=== PATIENT | female | born 1935 | race Caucasian/White ===

== ENCOUNTER 2016-11-29 09:21 | Outpatient (CLI) | payer MEDICARE, OTHER ==
[2016-11-29] MEDS ORDERED: ALBUTEROL NEB 2.5 MG/3 ML INH ONE (09:57)
== END 2016-11-29 09:22 | disposition home or self-care (01) ==
LOC: RT 09:21
PROVIDERS: ATTEND Internal Medicine
DX: R06.02 Shortness of breath (principal)
CPT/HCPCS: 94060; 94664; J7613

== ENCOUNTER 2017-12-20 14:48 | Outpatient (CLI) | payer MEDICARE, OTHER ==
--- NOTE | 2017-12-21 17:08 | MRI Report ---
Procedure Date: 12/19/2017 Accession Number: [id number] / [id number] Procedure: MRI - Knee LT W/O CPT Code: FULL RESULT: EXAM: LEFT KNEE MRI WITHOUT CONTRAST EXAM DATE: 12/20/2017 03:32 PM. CLINICAL HISTORY: Pain in left knee. COMPARISON: None. TECHNIQUE: Multiplanar, multisequence T1-weighted and fluid-sensitive sequences of the knee without contrast. Other: None. FINDINGS: Bones: No fractures or marrow edema. There is a small amount of red marrow reconversion present. There is some subchondral buttressing on both sides of the medial compartment. Benign-appearing bone island also seen at the proximal medial tibial plateau. 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 Lateral compartment is relatively spared. Patellofemoral joint is unremarkable. Medial Meniscus: Undersurface posterior horn medial meniscal degenerative tear. Series 501 image 21. Medial meniscus is also partially subluxed out of the joint. Posterior medial meniscal root is unremarkable. Lateral Meniscus: The lateral meniscus is intact. Cruciate Ligaments: The anterior and posterior cruciate ligaments are intact. Collateral Ligaments: MCL is bowed medially by the partially subluxed medial meniscus. No tear. LCL is normal. Tendons: The quadriceps, patellar, semimembranosus, and popliteus tendons are unremarkable. Musculature: No edema or fatty atrophy. Other: Moderate size joint effusion. No popliteal cyst. No loose bodies. The medial and lateral retinacula are intact. Generous amount of soft tissue swelling and edema surrounds the knee. IMPRESSION: 1. No fractures or marrow edema. Small amount of red marrow reconversion is present. Some subchondral buttressing on both sides of the medial compartment. Benign-appearing bone island proximal medial tibial plateau. No fractures. 2. 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 Undersurface posterior horn medial meniscal tear, meniscus is partially subluxed out of the joint and bowing. Otherwise intact and normal-appearing MCL medially. LCL is normal. 3. Lateral meniscus, cruciates and LCL appear unremarkable. Moderate-sized joint effusion. Moderate amount of surrounding soft tissue swelling and edema. RADIA MUSCULOSKELETAL RADIOLOGY SECTION
== END 2017-12-20 14:49 | disposition home or self-care (01) ==
LOC: DI 14:48
PROVIDERS: ATTEND Internal Medicine
DX: M94.262 Chondromalacia, left knee (principal); S83.242A Other tear of medial meniscus, current injury, left knee, initial encounter; M25.462 Effusion, left knee